=== PATIENT | male | born 1955 ===

== ENCOUNTER 2020-02-18 15:03 | Emergency (ER) | payer OTHER, SELFPAY ==
--- NOTE | ~2020-02-18 | CT_ITS ---
EXAMINATION: CT abdomen pelvis wo con DATE: 02/18/2020 15:47 INDICATION: Left flank pain for 2 days TECHNIQUE: Computed tomography (CT) of the abdomen and pelvis was performed without intravenous contr ast. Automated exposure control and iterative reconstruction technique were employed. Exam dose: 288 .44 mGy-cm total exam DLP. COMPARISON: None. FINDINGS: There are 2 up to 2.8 x 4.6 mm and 2.5 x 4.8 mm distal left ureteral calculi with moderate left hydroureteronephrosis, left nephromegaly and perinephric stranding. No other urinary tract calculi are noted. Prominent calcified right diaphragmatic pleural plaque. Additional smaller right-sided pleural calcif ications. Findings suggest prior asbestos exposure. The lung bases are clear of infiltrate or consoli dation. Normal heart size. No pericardial or pleural effusion. The liver, gallbladder, bile ducts, spleen, pancreas and pancreatic duct as well as the adrenal gland s are unremarkable. No renal space occupying mass lesion is evident on this limited noncontrast exami nation. Normal caliber of the abdominal aorta. No intraperitoneal or retroperitoneal or pelvic mass lesion or adenopathy or ascites. Normal appendix. No bowel obstruction, pneumatosis, bowel wall thickening or intraperitoneal free air . There is degenerative change at the apophyseal joints of the lower lumbar and lumbosacral area with a ssociated grade 1 anterolisthesis at L4-5. Diffuse idiopathic skeletal hyperostosis of the lower thor acic spine. There is moderate degenerative disc disease with minimal retrolisthesis at L2-3. No suspicious osteolytic or osteoblastic lesions are noted. 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 Reviewed, dictated and finalized at [facility] 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
[2020-02-18 15:07] VITALS: BP 179/99; PULSE 94; RESP 18; O2SAT 98
[2020-02-18 15:33] LABS: Basophils Percent Auto 0.4 % (0.2-1.2); Eosinophils Absolute Auto 0.1 K/mm3 (0-0.3); Eosinophils Percent Auto 1.7 % (0-4.4); Hematocrit 41.9 % (42.0-52.0); Hemoglobin 13.9 g/dL (14.0-18.0); Immature Granulocyte Absolute 0.01 K/mm3 (0.00-0.031); Immature Granulocyte Percent A 0.1 % (0-0.5); Lymphocytes Absolute Auto 1.42 K/mm3 (0.9-3.2); Lymphocytes Percent Auto 18.1 % (18.3-44.2); Mean Corpuscular HGB Conc 33.2 g/dl (32-36); Mean Corpuscular Hemoglobin 29.1 pg (26-34); Mean Corpuscular Volume 87.8 fl (80-100); Mean Platelet Volume 9.4 fl (7.4-10.4); Monocytes Absolute Auto 0.6 K/mm3 (0.1-0.6); Monocytes Percent Auto 7.1 % (2.6-8.5); Neutrophils Absolute Auto 5.7 K/mm3 (1.3-6.7); Neutrophils Percent Auto 72.6 % (45.5-73.1); Platelet Count Result 428 k/mm3 (150-375); Red Blood Count 4.77 M/mm3 (4.6-6.20); Red Cell Distribution Width 13.8 % (11.5-14.5); White Blood Count 7.9 K/mm3 (4.5-10.0)
--- NOTE | 2020-02-18 15:33 | ED.ABDPAIN ---
HPI - Abdominal Pain General Chief Complaint: Abdominal Pain Stated Complaint: L FLANK PAIN Time Seen by Provider: 02/18/20 15:04 Source: patient Mode of arrival: ambulatory Limitations: no limitations History of Present Illness HPI narrative: 64-year-old male Presents to ER complaining of left-sided flank pain which is been present for 3 days and is slowly getting worse He states the pain is constant however it is not too bad right at this very moment and sometimes tends to radiate to his lower abdomen. Nothing has made it better sometimes it feels worse when he tries to walk around Denies hematuria or other urinary symptoms Denies nausea vomiting diarrhea constipation or other GI symptoms No fever no history of back injury and he has type 2 diabetes and hypertension MD elicited complaint: abdominal pain Onset (ago): day(s) Pain Consistency: constant Location: L flank Exacerbating factors: movement Relieving factors: nothing Related Data Home Medications Medication Instructions Recorded Confirmed amlodipine 5 mg tablet 5 mg PO DAILY 02/10/20 glipizide 5 mg tablet, extended 5 mg PO DAILY 02/10/20 release 24 hr hydrochlorothiazide 25 mg tablet 25 mg PO DAILY 02/10/20 metformin 500 mg tablet,extended 500 mg PO BID 02/10/20 release 24 hr metoprolol tartrate 50 mg tablet 50 mg PO DAILY 02/10/20 Allergies Allergy/AdvReac Type Severity Reaction Status Date / Time valsartan Allergy Unknown Angioedema Verified 02/18/20 15:11 morphine AdvReac Confusion Verified 02/18/20 15:12 Review of Systems Review of Systems: All systems reviewed & are unremarkable except as noted in HPI and below Constitutional: Constitutional: Denies chills, Denies fatigue, Denies fever(s), Denies headache(s) and Denies night sweats Eyes: Eyes: Denies change in vision, Denies loss of vision and Denies other visual disturbances ENT: Denies headache(s), Denies hoarseness, Denies epistaxis, Denies nasal congestion and Denies sore throat Cardiovascular: Cardiovascular: Denies chest pain, Denies leg edema, Denies palpitations and Denies dyspnea Respiratory: Respiratory: Denies cough, Denies dyspnea and Denies wheezing Gastrointestinal: Gastrointestinal: Reports abdominal pain, Denies diarrhea, Denies nausea and Denies vomiting Genitourinary: Genitourinary: Denies hematuria, Denies dysuria and Denies urinary frequency Musculoskeletal: Musculoskeletal: Denies abnormal gait, Denies deformity, Denies joint swelling, Denies muscle weakness and Denies numbness Integumentary/Breasts: Skin/Breast: Denies rash, Denies unusual bruising and Denies wounds Neurologic: Denies abnormal gait, Denies headache(s), Denies focal weakness, Denies loss of vision and Denies numbness Psychiatric: Psychiatric: Reports no additional psychiatric complaints Endocrine: Endocrine: Denies fatigue and Denies palpitations Hematologic/Lymphatic: Hematologic/Lymphatic: Denies easy bleeding and Denies easy bruising Allergic/Immunologic: Allergic/Immunologic: Denies wheezing PMFSH Past Medical History Medical History Obstructive sleep apnea (adult) (pediatric) (~08/1989) Family History Family History Father Hypertension, Onset Age: 74 Family history of lymphoma, Onset Age: 74 Family history of congestive heart failure, Onset Age: 74 Sibling Family history of sarcoidosis Sibling , age 73, cancer type unknown Cancer Social History Social History Smoking status: Never smoker Alcohol intake: current Drinks per week: 3 Additional occupation/education comments: welding; 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
[2020-02-18 15:46] LABS: Blood Urea Nitrogen 18 mg/dL (9-20); Calcium 9.4 mg/dL (8.4-10.2); Carbon Dioxide 27 mmol/L (22-30); Chloride 103 mmol/L (98-107); Estimated CRCL calculation 60 ml/min; Estimated Glomerular Filt Rate > 60; Glucose 198 mg/dL (75-110); Sodium 139 mmol/L (137-145)
[2020-02-18 16:43] LABS: Add Urine Microscopic? YES; Appearance Urine Cloudy (Clear); Bilirubin Urine Negative (Negative); Blood Urine 3+ (Negative); Calcium Oxalate Crystals Urine Many /hpf; Color Urine Yellow (Yellow); Glucose Urine UA Negative (Negative); Ketones Urine Negative (Negative); Leukocyte Esterase Ur Negative LEU/UL (Negative); Mucus Urine Rare /lpf; Nitrate Urine Negative (Negative); Protein Urine 2+ mg/dL (Negative); RBC Urine >75 /hpf (0-2); Specific Grav Ur 1.029 (1.001-1.035); Urobilinogen Urine Negative mg/dL (<2.0); WBC Urine 0-3 /hpf
[2020-02-18 16:57] VITALS: BP 166/95; PULSE 89; RESP 18; O2SAT 99
[2020-02-18] MEDS: KETOROLAC 30 MG/ML VIAL (*BKC) IV PUSH (17:08)
[2020-02-18] MEDS: TAMSULOSIN HCL 0.4 MG CAPSULE PO (17:44)
== END 2020-02-18 17:55 | disposition home or self-care (01) ==
PROVIDERS: Emergency Provider Emergency Medicine; PCP Family Medicine
DX: N20.1 Calculus of ureter (principal); G47.30 Sleep apnea, unspecified
CPT/HCPCS: 36415; 74176; 80048; 81001; 85025; 96374; 99284; A9270; J1885